=== PATIENT | female | born 1945 | race Two or more races ===

== ENCOUNTER 2016-07-08 13:11 | Emergency (ER) | payer MEDICARE ==
[2016-07-08 13:18] VITALS: BP 179/85; PULSE 76; TEMP 98.4; BMI 33.3
--- NOTE | 2016-07-08 14:04 | EDPRACDOC ---
- General Information Chief Complaint: Allergic Reaction Stated Complaint: IRRITATION FROM A PATCH ON HER BACK Time Seen by Provider: 07/08/16 13:57 Information Source: Patient Mode Of Arrival: Car Home Medications: Home Medications Multivitamin with Minerals [One Daily] 1 tab PO DAILY 04/05/14 Albuterol Sulfate [Proair Hfa] 2 puff INH Q6H PRN 01/07/15 Esomeprazole Magnesium [Nexium] 40 mg PO 05/03/16 [place]-3 Fatty Acids/Fish Oil [Fish Oil 1,000 mg Capsule] 1 each PO DAILY Vit C/E/Zn/Coppr/Lutein/Zeaxan [Preservision Areds 2 Softgel] 1 each PO Albuterol Sulfate [Proair Hfa] PRN 05/30/16 Ascorbate Calcium [Vitamin C] 500 mg PO DAILY 05/30/16 Mv-Mn/FA/Vit K/Lycop/Lut/Zeaxa [Ocuvite Eye + Multi Tablet] 05/30/16 Promethazine HCl 25 mg PRN 05/30/16 Zoster Vaccine Live/Pf [Zostavax] 05/30/16 Sulfamethoxazole/Trimethoprim [Bactrim Ds Tablet] 1 tab PO BID #14 tab 07/08/16 Allergies/Adverse Reactions: Allergies Allergy/AdvReac Type Severity Reaction Status Date / Time No Known Allergies Allergy Verified 07/08/16 13:17 - History of Present Illness HPI: PT PRESENTS WITH A SILVER DOLLAR SIZE AREA TO HER RIGHT LOWER BACK WHERE HER PAIN PATCH WAS WERE THE SKIN BECAME BLISTERED AND PEELED OFF. PT IS CONCERNED THE AREA MAY BECOME INFECTED. STATES THE PATCH STAYED IN PLACE TOO LONG. Exposure occurred: 3 DAYS Exposed to: Medication Symptoms started: Days Symptoms Developed: Reports: Other Modifying factors: worse with: O, Diphenhydramine, Hydroxyzine, Not used Reaction Location: Reports: Back Relevant History of: Denies: O, Asthma, Prior similar episodes, Urticaria Associated Signs and Symptoms: Reports: None ED Past Medical History - History Reviewed Yes Nurses notes reviewed and agree except as marked - Patient Medical History Cardiac History: Reports: Hypertension, Hypercholesterolemia Respiratory History: Reports: Asthma. Denies: Pneumonia GI/ History: Reports: Kidney Stones (LITHOTRIPSY), Gastroesophageal Reflux Musculoskeletal History: Reports: Arthritis Psychological History: Reports: Depression, Anxiety Systemic History: Reports: Diabetes. Denies: Cancer Surgical History: Reports: Cholecystectomy (2008), Other (KNEE) - Family Medical History Reports: Hypertension (MOTHER,SISTER), Diabetes (FATHER,BROTHER), Cancer (MOTHER ,FATHER), Cardiac Disorders (MOTHER). Denies: Stroke - Social Medical History Smoking Status: Never smoker EDM Review of Systems - Review of Systems ROS Negative Except as Marked: Yes All systems reviewed and were negative except as marked - Physical Exam Constitutional: Alert Oriented to: Time, Person, Place Last recorded Vital Signs: Last Vital Signs Temp 98.4 F 07/08/16 13:14 Pulse 76 07/08/16 13:14 Resp 20 07/08/16 13:14 BP 179/85 07/08/16 13:14 Pulse Ox 98 07/08/16 13:14 Oxygen Pulse Oxygen Saturation 98 O2 Device Oxygen Flow Rate Fraction of Inspired Oxygen ( FIO2) - HEENT Head: Normal ( normocephalic) Eye Exam: Normal (PERRL, EOMI, Sclera white) Oropharynx: Normal (Pharynx:Moist without exudate,Gums-no swelling) Nose: No Symptoms Reported (septum midline) Neck: Normal (FROM, trachea at midline) - Respiratory/Cardiovascular Respiratory: Normal - CTA (BBS clear to auscultation without adventitious sounds ) Cardiovascular: Normal (RRR without murmur, gallop or rub) - GI Auscultation: Normal (NABS) Palpation: Normal (Soft,No rebound or guarding, non distended) Tenderness: Non tender Gallego's Sign: Negative Rectal Exam: Deferred - Musculoskeletal Back: Normal (Non-Tender) Extremities: Normal (Normal tone, Pulses 2+ No cyanosis or edema, FROM) Musculoskeletal Comment: SILVER DOLLAR SIZE AREA OF OPEN SKIN NOTED TO RIGHT LOWER BACK - Integumentary Skin: Normal, Warm, Dry Lymphatics: Normal (no adenopathy) - Neurologic Memory Impaired: Normal Motor Function: Normal (Normal tone, Pulses 2+ No cyanosis or edema, FROM) Cranial Nerve: Normal (CN II-X11 intact sensation, strength 5/5) Cerebellar: Normal Mood Description: Normal Perception: Normal Image: 1 - OPEN SKIN ED Allergic Reaction Exam - HEENT Eye Exam: Normal Tongue: Normal Palate: Normal Buccal Mucosa: Normal Oropharynx: Normal (Moist) Neck: Normal - Integumentary Skin: Normal, Warm, Dry Skin Lesion: NO Rash Color: Red Lymphatics: Normal (No adenopathy) - Differential Diagnosis Other Decision Time to Discharge: 14:05 - Departure Disposition: Home Condition: Stable Final Diagnosis: Wound of back Qualifiers: Encounter type: initial encounter Laterality: right Qualified Code(s): S21.201A - Unspecified open wound of right back wall of thorax without penetration into thoracic cavity, initial encounter Instructions: Acute Wound Care (ED) Education/Counseling Given To: Patient Education/Counseling Given Regarding: Diagnosis, Treatment, Prognosis, Follow Up Referrals: Adan Rodriguez MD [Primary Care Provider] - One Week Prescriptions: Sulfamethoxazole/Trimethoprim [Bactrim Ds Tablet] 1 tab PO BID #14 tab Additional Instructions: INCREASE FLUID INTAKE. FOLLOW UP WITH PRIMARY CARE PROVIDER NEXT WEEK. TAKE ALL ANTIBIOTICS PRESCRIBED. RETURN TO THE ED FOR WORSENING SYMPTOMS OR CONCERNS. CHANGE DRESSING EVERY OTHER DAY
== END 2016-07-08 14:17 | disposition home or self-care (01) ==
LOC: ED 13:11 → EDMC 14:17
DX: S21.201A Unspecified open wound of right back wall of thorax without penetration into thoracic cavity, initial encounter (principal); X58.XXXA Exposure to other specified factors, initial encounter
CPT/HCPCS: 99282